=== PATIENT | female | born 1965 | race Caucasian/White ===

== ENCOUNTER → 2017-01-05 | Outpatient (CLI) | payer OTHER ==
--- NOTE | 2017-01-08 05:49 | MRI ---
EXAM DESCRIPTION: Noncontrast MRI of the right shoulder CLINICAL HISTORY: Right shoulder pain with limited range of motion. COMPARISON: None TECHNIQUE: Multiplanar, multi sequence MRI images of the right shoulder were obtained without intra-articular contrast. FINDINGS: The rotator cuff is intact. Rotator cuff musculature demonstrates normal muscle bulk and signal characteristics. Seen best on the axial images 11-17, there is nonspecific mild inflammatory changes seen within the rotator interval extending into the subcoracoid interval. There is also thickening of the subscapularis with increased tendon signal. Findings are compatible with degeneration versus mild partial articular sided tearing. There is also decreased coracohumeral humeral head interval with mild edema seen within the tip of the coracoid process. Measurement from the lesser tuberosity to the coracoid process is 6 mm (normal is greater than 10 mm) and findings are concerning for subcoracoid impingement. Long head of the biceps is well situated within the intertubercular groove. Biceps labral anchor is intact. Diminutive appearance and slightly rounded configuration of the free edge of the posterior labrum. Shoulder is internally rotated during this examination. However, there is mild posterior positioning of the humeral head without jud subluxation or dislocation. Moderate degenerative changes of the acromioclavicular joint. No fluid seen within the subdeltoid/subacromial bursa. Type III acromion is noted. Glenohumeral joint cartilage is intact. No large joint effusion or loose body. Marrow signal is otherwise unremarkable without fracture or subluxation. IMPRESSION: 1. Anatomy with close approximation of the coracoid process to the lesser tuberosity measuring 6 mm (normal is greater than 10 mm). There is associated peritendinous edema within this interval as well as degenerative/low-grade tearing changes within the subscapularis tendon. No high-grade tendon tear or retracted tendon fibers. However, consolation of findings can be seen with subcoracoid impingement. 2. Otherwise, the rotator cuff is intact. 3. Moderate AC joint osteoarthrosis. Electronically signed by: Reece العلي MD 01/08/2017 5:48 AM CDT
== END ==
LOC: MRI 13:47
PROVIDERS: ATTEND Family Medicine
DX: M25.511 Pain in right shoulder (principal); M19.011 Primary osteoarthritis, right shoulder

== ENCOUNTER → 2017-05-23 | Outpatient (CLI) | payer OTHER ==
--- NOTE | 2017-05-24 11:25 | MAM ---
EXAM DESCRIPTION: Screening Mammogram,Bilateral CLINICAL HISTORY: 52 yearsFemaleSCREENING. No complaints. Maternal grandmother with breast cancer. Premenopausal. No HRT. COMPARISON: 2-D digital screening bilateral examination 05/09/2016. 2-D digital diagnostic left breast examination 05/18/2016.. Reports from prior examinations also reviewed. TECHNIQUE: Bilateral CC and MLO projection full-field images, 2-D digital screening mammographic technique. CAD was utilized. FINDINGS: The breast parenchymal density pattern is: Heterogeneously dense breast tissue, which may obscure small masses. No skin thickening or nipple retraction bilateral axillary lymph nodes. Bilateral solitary microcalcifications. No focal, stellate mass or density, focal asymmetry , and no suspicious microcalcifications bilaterally. Stable mammograms compared to prior screening study May 2016. IMPRESSION: BI-RADS CATEGORY: 2 - BENIGN FINDINGS. FOLLOW UP: Routine digital bilateral screening, one year interval from May 2017. Written communication explaining the findings and follow-up, will be mailed to the patient and referring health care provider. According to the [employer], yearly mammograms are recommended starting at age 40 and continuing as long as a woman is in good health. Any breast change noted on a breast self-exam should be reported promptly to the patient's healthcare provider. Breast MRI is recommended for women with an approximately 20-25% or greater lifetime risk of breast cancer, including women with a strong family history of breast or ovarian cancer and women who have been treated for Hodgkin's disease. A negative mammographic report should not delay tissue diagnosis in patients with significant clinical history or physical findings. Extremely dense breast tissue limits the sensitivity of digital mammography. Electronically signed by: Pablo Castano MD 05/24/2017 11:24 AM CDT Workstation: [id number]
== END ==
LOC: MAMMO 13:20
PROVIDERS: ATTEND Family Medicine
DX: Z12.31 Encounter for screening mammogram for malignant neoplasm of breast (principal)

== ENCOUNTER → 2018-05-28 | Outpatient (CLI) | payer OTHER ==
--- NOTE | 2018-05-29 10:09 | MAM ---
EXAM DESCRIPTION: 3D Screening BILATERAL : Digital Mammography. CLINICAL HISTORY: 53 years Female SCREEN . No personal history or family history of breast cancer. Childbirth. Postmenopausal. No HRT. Lifetime risk of developing breast cancer (Tyrer-Cuzick model) is 12.4 %. COMPARISON: 2-D digital screening bilateral study 05/23/2017. TECHNIQUE: Bilateral CC and MLO projection full-field images, Digital tomosynthesis mammographic technique. Bilateral digital 2-D full-field MLO images. CAD not utilized. FINDINGS: The breast parenchymal density pattern is: Homogeneously dense breast tissue, which may obscure small masses. Right axillary lymph nodes.. Small solitary microcalcifications. Skin calcifications left breast. Skin mole inferior right breast. No new focal, stellate mass or density, focal asymmetry , and no suspicious microcalcifications bilaterally. Stable mammograms compared to prior study. Taking into account, differences in mammographic technique. IMPRESSION: Benign exam BIRAD CATEGORY: 2 BENIGN FINDINGS RECOMMENDATIONS: FOLLOW UP: Routine digital bilateral screening, one year interval from May 2018. Written communication explaining the IMPRESSION and follow-up, will be mailed to the patient and referring health care provider. According to the [employer], yearly mammograms are recommended starting at age 40 and continuing as long as a woman is in good health. Any breast change noted on a breast self-exam should be reported promptly to the patient's healthcare provider. Breast MRI is recommended for women with an approximately 20-25% or greater lifetime risk of breast cancer, including women with a strong family history of breast or ovarian cancer and women who have been treated for Hodgkin's disease. A negative mammographic report should not delay tissue diagnosis in patients with significant clinical history or physical findings. Extremely dense breast tissue limits the sensitivity of digital mammography. Electronically signed by: Pablo Castano MD 05/29/2018 10:08 AM CDT
== END ==
LOC: MAMMO 16:00
PROVIDERS: ATTEND Family Medicine
DX: Z12.31 Encounter for screening mammogram for malignant neoplasm of breast (principal)